=== PATIENT | male | born 1985 | race Caucasian/White ===

== ENCOUNTER 2016-11-09 00:45 | Emergency (ER) | payer OTHER ==
--- NOTE | ~2016-11-09 | CR72 ---
[facility] A Service of [facility] RADIOLOGY TEXT RESULTS PATIENT: PATRICIA DUCKWORTH LOCATION: [facility] : [id number] UNIT #: [id number] AGE: [address]: Maritza Gonzalez APRN SEX: M ORDER DR: [id number] [facility] [address] [place], [place] [address] [id number] E MR#: [id number] Acc #: [id number] NAME: PATRICIA DUCKWORTH : 1985 SEX: M STUDY DATE/TIME: 11/09/2016 1:57 UNIT: [facility] ROOM: STUDY DESCRIPTION: CR Chest Single View Portable Attending Physician: Maritza Gonzalez A.P.R.N. Ordering Physician: Maritza Gonzalez A.P.R.N. Primary Care Physician: Primary Care Physician No MEDICAL IMAGING REPORT This report is preliminary unless electronic signature is present EXAM Portable chest INDICATION Shortness of air for the past 3 days. PROCEDURE Frontal view chest. COMPARISON 12/14/2015 FINDINGS Heart size unchanged. No dense consolidation, pleural fluid or pneumothorax. IMPRESSION No active process. Dictated by... Max Bueno M.D. THIS IS AN ELECTRONICALLY VERIFIED REPORT Max Bueno M.D. at 11/09/2016 10:01 PM WINNIE/jeffy TD: 11/09/2016 02:59 JOB #: [id number] MEDICAL IMAGING REPORT Page 1 of 1 COPY
--- NOTE | ~2016-11-09 | CT4 ---
[facility] A Service of [facility] RADIOLOGY TEXT RESULTS PATIENT: PATRICIA DUCKWORTH LOCATION: [facility] : [id number] UNIT #: [id number] AGE: [address]: Maritza Gonzalez APRN SEX: M ORDER DR: [id number] [id number] [facility]. [place], [place] [address] [id number] E MR#: [id number] Acc #: [id number] NAME: PATRICIA DUCKWORTH : 1985 SEX: M STUDY DATE/TIME: 11/09/2016 2:02 UNIT: [facility] ROOM: STUDY DESCRIPTION: CT Abd and Pelv Wo Cont Attending Physician: Maritza Gonzalez A.P.R.N. Ordering Physician: Maritza Gonzalez A.P.R.N. Primary Care Physician: Primary Care Physician No MEDICAL IMAGING REPORT This report is preliminary unless electronic signature is present EXAM CT abdomen and pelvis without contrast INDICATION Shortness of air and left flank pain for the past [address] abdomen and pelvis. This CT exam was performed with one or more of the following radiation dose reduction techniques: automatic exposure control, adjustment of mA and/or kV according to patient size, and iterative reconstruction. COMPARISON None. FINDINGS ABDOMEN WITHOUT CONTRAST: Included lung bases clear. Liver, spleen, adrenal glands, pancreas, gallbladder have an unremarkable unenhanced appearance. Bowel loops are nondilated. Previous appendectomy. No radiodense urinary system calculus or hydronephrosis. PELVIS WITHOUT CONTRAST: No bladder calculus. No pelvic mass or fluid. No aggressive-appearing bone lesion. IMPRESSION No acute findings in the abdomen or pelvis. Dictated by... Max Bueno M.D. [facility] A Service [facility] RADIOLOGY TEXT RESULTS PATIENT: PATRICIA DUCKWORTH LOCATION: [facility] : [id number] UNIT #: [id number] AGE: [address]: Maritza Gonzalez APRN SEX: M ORDER DR: THIS IS AN ELECTRONICALLY VERIFIED REPORT Max Bueno M.D. at 11/09/2016 10:01 PM WINNIE/jeffy TD: 11/09/2016 03:00 JOB #: [id number] MEDICAL IMAGING REPORT Page 1 of 1 COPY
[~2016-11-09 00:45] MED LIST: AMOXICILLIN875 MG PO; AUGMENTIN875 M1 PO; BACTRIM DS TABL1 TA1 PO; EC-NAPROSYN500 MG PO; FLEXERIL10 MG PO; IBUPROFEN600 MG PO; KEFLEX500 M2 PO; LORTAB 7.5-3251 EACH PO; NO MEDICATIONS; TUSSIONEX PENN480 ML PO; VOLTAREN50 MG PO; VOLTAREN75 MG PO; ZITHROMAX PO
[2016-11-09 01:53] LABS: POC - CKMB 1.5 ng/mL (0.0-7.9); POC - TROPONIN <0.05 ng/mL (<=0.05)
[2016-11-09 02:08] LABS: BASOPHIL# 0.1 X10e3 (0-0.3); BASOPHIL% 0.5 % (0-2.5); EOSINOPHIL# 0.2 X10e3 (0-0.7); EOSINOPHIL% 1.7 % (0.0-7.0); HEMOGLOBIN 14.3 gm/dL (13.0-16.0); LYMPHOCYTE% 25.6 % (17.0-45.0); MEAN CORPUSCULAR HEMOGLOBIN 32.2 PG (28-34); MEAN CORPUSCULAR HGB CONC 33.2 g/dL (30-36); MEAN PLATELET VOLUME 7.4 FL (6.5-11.5); MONOCYTE% 8.3 % (3.0-12.0); NEUTROPHIL# 7.4 X10e3 (1.5-7.1); NEUTROPHIL% 63.9 % (40-75); PLATELET COUNT 274 X10e3 (140-420); RED BLOOD COUNT 4.43 X10e (3.90-5.60); RED CELL DISTRIBUTION WIDTH 15.2 % (11.0-15.5); WHITE BLOOD COUNT 11.6 X10e3 (4.0-10.5)
[2016-11-09 02:09] LABS: DIFF IND NO
[2016-11-09 02:35] LABS: ALBUMIN SERUM 3.6 g/dL (3.5-5.0); ALKALINE PHOSPHATASE 113 U/L (32-92); ALT (SGPT) 26 U/L (10-40); AMYLASE 24 U/L (0-46); AST (SGOT) 32 U/L (10-42); BILIRUBIN, DIRECT <0.1 mg/dL (0.0-0.2); BILIRUBIN,INDIRECT 0.2 mg/dL (0.0-0.9); BILIRUBIN,TOTAL 0.3 mg/dL (0.2-2.0); BLOOD UREA NITROGEN 11 mg/dL (9-23); BUN/CREATININE RATIO 8.46; CARBON DIOXIDE 26 mmol/L (22-31); CHLORIDE 104 mmol/L (100-111); CREATININE SERUM 1.3 mg/dL (0.6-1.4); GLOM FILT RATE Estimated 73.8 mL/min (>60); GLUCOSE FASTING 118 mg/dL (70-110); LIPASE 28 U/L (22-51); POTASSIUM 3.3 mmol/L (3.5-5.1); PROTEIN TOTAL SERUM 6.9 g/dL (6.0-8.3); SODIUM 139 mmol/L (135-145)
[2016-11-09 03:06] LABS: URINE SOURCE CLEAN CATCH
[2016-11-09 03:10] LABS: URINE APPEARANCE CLEAR; URINE BILIRUBIN NEG (NEG); URINE BLOOD NEG (NEG); URINE COLOR YELLOW; URINE GLUCOSE >1000 MG/DL (NEG); URINE KETONE 1+ (NEG); URINE LEUKOCYTE ESTERASE NEG (NEG); URINE NITRATE NEG (NEG); URINE PROTEIN NEG (NEG); URINE SPECIFIC GRAVITY 1.038 (1.003-1.035); URINE UROBILINOGEN 0.2 MG/DL (NEG)
[2016-11-09 03:11] LABS: CULTURE INDICATED? NO
[2016-11-09 03:18] LABS: AMPHETAMINE NEG (NEG); BARBITURATES NEG (NEG); BENZODIAZEPINES NEG (NEG); COCAINE NEG (NEG); MARIJUANA NEG (NEG); OPIATES NEG (NEG); TRICYCLIC ANTIDEPRESSANTS NEG (NEG); U METHADONE NEG (NEG)
== END 2016-11-09 04:25 | disposition home or self-care (01) ==
LOC: CED 00:45
PROVIDERS: Nurse Practitioner
DX: S39.011A Strain of muscle, fascia and tendon of abdomen, initial encounter (principal); F10.129 Alcohol abuse with intoxication, unspecified; I10 Essential (primary) hypertension; F17.210 Nicotine dependence, cigarettes, uncomplicated; X58.XXXA Exposure to other specified factors, initial encounter; Y92.9 Unspecified place or not applicable
CPT/HCPCS: 36415; 71010; 74176; 80048; 80076; 80307; 81003; 82150; 82553; 83690; 84484; 85025; 96361; 96374; 96375; 99284; G0480; J1885; J2405

== ENCOUNTER 2016-12-18 22:44 | Emergency (ER) | payer OTHER ==
[~2016-12-18] VITALS: Ht 175.3 cm; Wt 81.6 kg
== END 2016-12-18 23:57 | disposition home or self-care (01) ==
LOC: CED 22:44
DX: T23.252A Burn of second degree of left palm, initial encounter (principal); T23.251A Burn of second degree of right palm, initial encounter; I10 Essential (primary) hypertension; X08.8XXA Exposure to other specified smoke, fire and flames, initial encounter; Y92.009 Unspecified place in unspecified non-institutional (private) residence as the place of occurrence of the external cause
CPT/HCPCS: 99283